=== PATIENT | female | born 1950 | race Caucasian/White ===

== ENCOUNTER 2016-09-04 14:02 | Emergency (ER) | payer MEDICARE, OTHER ==
[~2016-09-04] VITALS: Ht 162.6 cm; Wt 83.0 kg
[~2016-09-04 14:02] MED LIST: ALEN70TA48 PO; ALLO100T PO; ASCO500T9 PO; ASPI81TA43 PO; CALC-191 PO; ESCI10TA47 PO; HYDR-3989 PO; LOSA50TA52 PO; MECL-103 PO; OMEG500C7 PO; PRAV20TA4 PO
--- OUTSIDE RECORDS SUMMARY | 2016-09-04 14:05 | XMS REPORT | Referral Summary ---
Author Author [facility] Organization [facility] Address Unknown Phone Unavailable Care Team Providers Care Orthopedic Technician Name Role Phone Mak Karlos ABURTO Primary Care Physician [phone] Encounter Date(s): 03/10/16 - 03/10/16 [facility] [address] [place] [id number] Discharge Diagnosis: Contusion of right forearm Discharge Disposition: 01-Home or Self Care Attending Physician: Angel Harper DO Admitting Physician: Angel Harper DO Vital Signs Most recent to 1 oldest [Reference Range]: Temperature Tympanic 36.5 degC [36.6-38.1 degC] *LOW* (03/10/16 9:52 AM) Peripheral Pulse 85 bpm Rate [60-100 bpm] (03/10/16 9:52 AM) Blood Pressure 130/75 mmHg [90-140/60-90 mmHg] (03/10/16 9:52 AM) Problem List Condition Effective Dates Status Health Status Informant Obesity(Confirmed) Active patient Allergies, Adverse Reactions, Alerts Substance Reaction Severity Status HYDROcodone Active Medications alendronate weekly Oral, qWeek, 0 Refill(s) Start Date: 03/10/16 Status: Ordered allopurinol 100 mg oral tablet mg tabs, Oral, BID, 0 Refill(s) Start Date: 03/10/16 Status: Ordered aspirin 81 mg oral tablet 81 mg 1 tabs, Oral, Daily, # 30 tabs, 0 Refill(s) Start Date: 03/10/16 Status: Ordered escitalopram 10 mg oral tablet 10 mg 1 tabs, Oral, Daily, # 30 tabs, 0 Refill(s) Start Date: 03/10/16 Status: Ordered losartan 50 mg oral tablet 50 mg 1 tabs, Oral, Daily, # 30 tabs, 0 Refill(s) Start Date: 03/10/16 Status: Ordered Pravachol 20 mg oral tablet 20 mg 1 tabs, Oral, Daily, # 30 tabs, 0 Refill(s) Start Date: 03/10/16 Status: Ordered venlafaxine 150 mg oral capsule, extended release mg caps, Oral, Daily, 0 Refill(s) Start Date: 03/10/16 Status: Ordered Results No data available for this section Immunizations No data available for this section Procedures No data available for this section Social History Social History Type Response Smoking Status Never smoker Assessment and Plan Extracted from: Title: Office Visit Note Author: Angel Harper DO Date: 03/10/16 Assessment/Plan 1.Contusion of right forearm 1. This appears to be mild superficial contusion of the right forearm. 2. Conservative management recommended. 3. NSAID or Tylenol as needed for pain Ordered: Office Visit Level 3 Est 34178
--- OUTSIDE RECORDS SUMMARY | 2016-09-04 14:05 | XMS REPORT | Continuity of Care Document ---
Author Author [facility] Organization [facility] Address Unknown Phone Unavailable Support Name Relationship Address Phone BASHIR HATCH MD Caregiver [facility] [address] [place] [address] Unavailable HEATHER SORTO II, MD Caregiver [address] [place], [place] [phone] ROMEROGAYLE Next Of Kin [address] [place] [address] Insurance Providers Payer Name Policy Number Subscriber Name Relationship Medicare [id number] Nahomy Reeves 18 Self [employer] Medicare Supplement [id number] Nahomy Reeves 18 Self Advance Directives Directive Response Recorded Date/Time Ordered Resuscitation Status Full Code 03/02/14 5:22am Resuscitation Documents on File No 03/02/14 8:37am Chief Complaint and Reason for Visit Chief Complaint CONFUSION,DIZZINESS Reason for Visit Medication side effect Dizziness Concussion Confusion Problems Medical Problems Problem Onset Date Status Medication side effect Unknown Active Dizziness Unknown Active Concussion Unknown Active Confusion Unknown Active Medications Medication Dose Route Sig Days/Qty Instructions Order Date Discontinued Date Status [[id number] M1] 100 Mg PO DAILY 03/02/14 Active [Pravastatin Sod20 M1] 20 Mg PO DAILY 03/02/14 Active [Losartan Hmlmio84 M1] 50 Mg PO DAILY 03/02/14 Active [Escitalopram Ox10 M1] 10 Mg PO DAILY 03/02/14 Active [Alendronate Sod70 M1] 70 Mg PO WEEKLY 03/02/14 Active Aspirin 81 Mg PO DAILY 03/02/14 Active Calcium Carbonate/Vitamin D3 1 Tab PO TWICE A DAY 03/02/14 Active [place]-3 Fatty Acids 1,000 Mg PO DAILY 03/02/14 Active Ascorbic Acid 1,000 Mg PO DAILY 03/02/14 Active Meclizine HCl 25 Mg PO THREE TIMES A DAY 60 Qty Take 1 tablet, by mouth, 2 times a day. 03/03/14 Active Social History Social History Problem Response Recorded Date/Time Smoking Status Never smoker 03/02/2014 8:41am Hx Substance Use No 03/02/2014 4:25am Hx Alcohol Use No 03/02/2014 4:25am Hospital Discharge Instructions Instructions: Care Instructions: Reason for Hospitalization: CONFUSION, DIZZINESS I was in the hospital because (patient own words): "BECAUSE I HAD A BAD FALL, AND I COULDN'T STAND UP WITHOUT BEING NERVOUS" Discharge Diet: regular Discharge Activity: as tolerated, minimal weight bearing on right foot Follow Up Appointments: FOLLOW-UP WITH DR MIN ON 03-17-14 AT 1:00PM. CHECK IN TIME AT 12:45PM. BRING CURRENT MED LIST AND COPY OF INSURANCE CARDS FOLLOW-UP WITH DR SORTO ON 03-10-14 AT 10:15AM AT [facility]. Patient Instructions: EEG AWAKE & DROWSY OUT PATIENT ON 03/04 Condition at time of discharge: Good Notify Physician If: Worsening SOB, swelling in ankles, wt gain > 3 lbs General Information: n/a Condition at time of discharge: Good Good Plan of Care Discharge Date 03/03/14 2:01pm Disposition 01 DISCHARGED HOME, SELF-CARE Instructions/Education Provided DI for Altered Mental Status Prescriptions See Medications Section Functional Status Query Response Date Recorded Physical Hygiene Self March 03, 2014 1:03pm Disabilities None March 03, 2014 1:03pm Devices Used Cane March 03, 2014 1:03pm Dressing Self March 03, 2014 1:03pm Ambulation Self March 03, 2014 1:03pm Diet Self March 03, 2014 1:03pm Cognitive/Functional Comments CURRENTLY USING CANE BECAUSE OF FOOT FX, NORMALLY WITHOUT ASSISTIVE DEVICE March 03, 2014 1:03pm Mental Status Alert March 03, 2014 1:03pm Disabilities None March 03, 2014 1:03pm Devices Used Cane March 03, 2014 1:03pm Physical Hygiene Self March 03, 2014 1:03pm Dressing Self March 03, 2014 1:03pm Ambulation Self March 03, 2014 1:03pm Diet Self March 03, 2014 1:03pm Allergies, Adverse Reactions, Alerts Allergen Type Severity Reaction Status Last Updated No Known Allergies Active 03/02/14 Immunizations Name Given Type Hx Influenza Vaccination Y FALL 2012 Historical Hx Pneumococcal Vaccination No Historical Hx Influenza Vaccination Y FALL 2012 Historical Vital Signs Acute Vital Signs Vital Response Date/Time Temperature (Fahrenheit) 96.8 deg F (96.8 - 99.1) Temperature (Calculated Celsius) 36.97769 degrees C (36.0 - 37.3) Temperature Source Oral Pulse Rate (adult) 72 bpm (60 - 100) Respiratory Rate 20 breaths/min (10 - 20) O2 Sat by Pulse Oximetry 96 % (90 - 100) Oxygen Delivery Method Room Air Blood Pressure 115/60 mm Hg Blood Pressure Source Automatic Cuff Blood Pressure / Blood Pressure Source Automatic Cuff Height 5 ft 4 in Weight 184 lb Body Mass Index 31.0 kg/m^2 Results Test Source Date Result Interp. Ref. Range Comments Acetaminophen Level March 02, 2014 4:32am < 10 UG/ML L 10-30 TOXIC < 4 HR POST INGESTION: >150 MG/L;TOXIC <12 HR POST INGESTION: >50 MG/L Alanine Aminotransferase (ALT/SGPT) March 02, 2014 4:32am 39 U/L N 9- 52 Albumin March 02, 2014 4:32am 3.9 G/DL N 3.5-5.0 Albumin/Globulin Ratio March 02, 2014 4:32am 1.3 RATIO N 1.1-2.2 Alkaline Phosphatase March 02, 2014 4:32am 68 U/L N 38-126 Anion Gap March 02, 2014 4:32am 10 MEQ/L N 5-15 Aspartate Amino Transf (AST/SGOT) March 02, 2014 4:32am 30 U/L N 14- 36 BUN/Creatinine Ratio March 02, 2014 4:32am 16 RATIO N 6-26 Basophils # (Auto) March 02, 2014 4:32am 0.1 T/MM3 N 0-0.2 Basophils (%) (Auto) March 02, 2014 4:32am 0.6 % N 0-2 Blood Urea Nitrogen March 02, 2014 4:32am 21.0 MG/DL H 7-17 Calcium Level March 02, 2014 4:32am 9.8 MG/DL N 8.4-10.2 Calculated Osmolality March 02, 2014 4:32am 274 MOSM/KG N 261-280 Carbon Dioxide Level March 02, 2014 4:32am 27 MEQ/L N 22-30 Chloride Level March 02, 2014 4:32am 104 MEQ/L N 98-107 Cholesterol Level February 27, 2014 10:29am 130 MG/DL L 132-199 Cholesterol/HDL Ratio February 27, 2014 10:29am 4.5 RATIO H 0-4.0 Conjugated Bilirubin March 02, 2014 4:32am 0.00 MG/DL N 0.00-0.30 Creatinine March 02, 2014 4:32am 1.3 MG/DL DH 0.7-1.2 Eosinophils # (Auto) March 02, 2014 4:32am 0.1 T/MM3 N 0-0.5 Eosinophils (%) (Auto) March 02, 2014 4:32am 1.7 % N 0-4 Globulin March 02, 2014 4:32am 2.9 G/DL N 2.4-3.6 Glucose Level March 02, 2014 4:32am 104 MG/DL N 65-110 Hematocrit March 02, 2014 4:32am 42.6 % N 36-46 Hemoglobin March 02, 2014 4:32am 13.6 GM/DL N 12-16 LDL Cholesterol, Calculated February 27, 2014 10:29am 69.6 N 66-159 Lymphocytes # (Auto) March 02, 2014 4:32am 2.0 T/MM3 N 1-4.8 Lymphocytes (%) (Auto) March 02, 2014 4:32am 24.5 % N 23-45 Mean Corpuscular Hemoglobin March 02, 2014 4:32am 30.1 UUG N 26-34 Mean Corpuscular Hemoglobin Concent March 02, 2014 4:32am 31.9 GM/DL N 31-37 Mean Corpuscular Volume March 02, 2014 4:32am 94.2 UM3 N 80-100 Mean Platelet Volume March 02, 2014 4:32am 9.9 UM3 N 9.4-12.4 Monocytes # (Auto) March 02, 2014 4:32am 0.5 T/MM3 N 0-0.8 Monocytes (%) (Auto) March 02, 2014 4:32am 5.8 % N 0-9.0 Neutrophils # (Auto) March 02, 2014 4:32am 5.6 T/MM3 N 1.8-7.7 Neutrophils (%) (Auto) March 02, 2014 4:32am 67.3 % H 33-66 Platelet Count March 02, 2014 4:32am 285 T/MM3 N 130-400 Potassium Level March 02, 2014 4:32am 4.4 MEQ/L N 3.6-5 RDW Standard Deviation March 02, 2014 4:32am 44.0 FL N 36.9-50.2 Red Blood Count March 02, 2014 4:32am 4.52 M/MM3 N 4.00-5.20 Sodium Level March 02, 2014 4:32am 141 MEQ/L N 134-144 Thyroid Stimulating Hormone (TSH) February 27, 2014 10:29am 1.85 MIU/L N 0.47-4.68 Total Bilirubin March 02, 2014 4:32am 0.50 MG/DL N 0.20-1.30 Total Protein March 02, 2014 4:32am 6.8 G/DL N 6.3-8.2 Triglycerides Level February 27, 2014 10:29am 157 MG/DL H 35-135 Unconjugated Bilirubin March 02, 2014 4:32am 0.20 MG/DL N 0.00-1.10 Uric Acid February 27, 2014 10:29am 5.2 MG/DL N 2.5-7.5 Urine Bacteria March 02, 2014 4:55pm Trace H - Has specimen been collected/obtained? Y Urine Bilirubin March 02, 2014 4:55pm Negative - Has specimen been collected/obtained? Y Urine Blood March 02, 2014 4:55pm Negative - Has specimen been collected/obtained? Y Urine Collection Type March 02, 2014 4:55pm Cleancatch-midstream - Has specimen been collected/obtained? Y Urine Color March 02, 2014 4:55pm Yellow - Has specimen been collected/obtained? Y Urine Glucose (UA) March 02, 2014 4:55pm Negative - Has specimen been collected/obtained? Y Urine Ketones March 02, 2014 4:55pm Negative - Has specimen been collected/obtained? Y Urine Leukocyte Esterase March 02, 2014 4:55pm 1+ H - Has specimen been collected/obtained? Y Urine Nitrite March 02, 2014 4:55pm Negative - Has specimen been collected/obtained? Y Urine Protein March 02, 2014 4:55pm Negative - Has specimen been collected/obtained? Y Urine RBC March 02, 2014 4:55pm Trace /HPF - Has specimen been collected/obtained? Y Urine Renal Epithelial Cells February 27, 2014 10:29am 3-5 /HPF - Urine Specific [place] March 02, 2014 4:55pm 1.010 L - Has specimen been collected/obtained? Y Urine Squamous Epithelial Cells March 02, 2014 4:55pm 0-5 - Has specimen been collected/obtained? Y Urine Turbidity March 02, 2014 4:55pm Clear - Has specimen been collected/obtained? Y Urine Urobilinogen March 02, 2014 4:55pm 0.2 EU/DL - Has specimen been collected/obtained? Y Urine WBC March 02, 2014 4:55pm 1-3 /HPF - Has specimen been collected/obtained? Y Urine White Blood Cell Casts February 27, 2014 10:29am 0-1 /LPF - Urine pH March 02, 2014 4:55pm 6.0 - Has specimen been collected/ obtained? Y VLDL Cholesterol February 27, 2014 10:29am 31.4 MG/DL H 0-28 White Blood Count March 02, 2014 4:32am 8.3 T/MM3 N 4.5-11.0 Chemistry Specimen Hemolysis March 02, 2014 4:32am < 15 0-25 0-25: No Hemolysis.26-70: Slight Hemolysis - can falsely elevate K and Urine Protein. 71-285: Moderate Hemolysis - can falsely elevate K, Troponin I, CA 19-9, PTH, CSF GLucose, and Urine Protein, and can falsely decrease Phenytoin. 286-999: Gross Hemolysis - can falsely elevate K, Troponin I, CA 19-9, PTH, CSF Glucose, and Urine Protine, and can falsely decrease Phenytoin. Recommend specimen recollection. Lab Scanned Report March 02, 2014 9:40pm REFERENCE LAB [id number] - HDL Cholesterol Direct February 27, 2014 10:29am 29 MG/DL L 40-60 Turbidity March 02, 2014 4:32am < 20 0-20 Glomerular Filtration Rate Calc March 02, 2014 4:32am 41 - Immature Granulocyte # (Auto) March 02, 2014 4:32am 0.01 T/MM3 N 0.00- 0.03 Immature Granulocyte % (Auto) March 02, 2014 4:32am 0.1 % N 0.0-0.5 Icterus Index March 02, 2014 4:32am < 2 0-7 Name: NAHOMY REEVES Unit #: [id number] : [id number] Sex: F Loc / Svc: ED DOS: 03/02/14 Signed Report #: [id number] DIAGNOSTIC IMAGING REPORT TYPE OF EXAM: CT HEAD W/O CONTRAST Dictated By: CHEN BARON MD INDICATION: ITS.REASON: acute worsening confusion and dizziness after head injury CT HEAD W/O CONTRAST: Comparison: February 27, 2014 Technique: Axial CT images through the head were performed without contrast. FINDINGS: The ventricles are of stable. There is no evidence of acute intracranial hemorrhage, midline displacement, or mass effect. There are numerous areas of low attenuation in the white matter which most likely represent changes of chronic microvascular ischemia. The CT attenuation of the brain parenchyma is otherwise normal within the cerebellum, brain stem, and cerebral hemispheres. The tympanic cavities and mastoid air cells are free of appreciable disease. There are no definite fractures of the skull base, calvarium, or visualized portion of the midface. Right parietal scalp hematoma again seen. IMPRESSION: No CT evidence of acute traumatic intracranial injury. There is a preliminary report by virtual radiologic. . Procedures No known history of procedures. Encounters Encounter Location Date/Time Discharged Inpatient [facility] 03/02/14 5:22am Registered Clinic [facility] 02/27/14 10:09am Recent Diagnosis Medication side effect Dizziness Concussion Confusion
--- OUTSIDE RECORDS SUMMARY | 2016-09-04 14:05 | XMS REPORT | Continuity of Care Document ---
Author Author [facility] Organization [facility] Address Unknown Phone Unavailable Support Name Relationship Address Phone HEATHER SORTO II, MD Caregiver [address] [place] [address] Unavailable CIARAN DICKERSON MD Caregiver [address] [place] [phone] Unavailable GAYLE JASSO Next Of Kin [address] [place] [address] Insurance Providers Guarantor Nahomy Reeves Address [address] [place] [address] C Email DENIED/NO TO PT [facility] Medicare Supplement Policy Number [id number] Subscriber's Name Nahomy Reeves Relationship 18 Self Group Number PLAN Payer Medicare Policy Number [id number] Subscriber's Name Nahomy Reeves Relationship 18 Self Advance Directives Directive Response Recorded Date/Time Advanced Directives Type None 02/13/16 5:40am Chief Complaint and Reason for Visit Chief Complaint Lower Extremity Injury Reason for Visit Sprain of right knee Problems Active Problems Medical Problem Onset Date Status Concussion Unknown Acute Confusion Unknown Acute Dizziness Unknown Acute Medication side effect Unknown Acute Past Problems Medical Problem Onset Date Sprain of right knee Unknown Medications Current Home Medications Medication Dose Units Route Directions Days Qty Instructions Start Date Alendronate Sod70 M1 (Alendronate Sodium) 70 Mg Tablet 70 Mg Oral Weekly 03/02/14 Mbytzyrhypa605 M1 (Allopurinol) 100 Mg Tablet 100 Mg Oral Daily 03/02/14 Ascorbic Acid (Vitamin C) 500 Mg Tablet 1,000 Mg Oral Daily 03/02 Aspirin (Aspir-Low) 81 Mg Tablet. 81 Mg Oral Daily 03/02/14 Calcium Carbonate/Vitamin D3 (Calcium + Vitamin D Tablet) 1 Each Tablet 1 Tab Oral Twice A Day 03/02/14 Escitalopram Ox10 M1 (Escitalopram Oxalate) 10 Mg Tablet 10 Mg Oral Daily 03/02/14 Hydrocodone/Acetaminophen (Hydrocodon-Acetaminophen 5-325) 5-325 Tablet 1-2 Tab Oral Every 6 Hours as needed for Pain 20 Tablet 02/13/16 Losartan Ilikum39 M1 (Losartan Potassium) 50 Mg Tablet 50 Mg Oral Daily 03/02/14 Meclizine Hcl 25 Mg Tablet 25 Mg Oral Three Times A Day 60 Tablet Take 1 tablet, by mouth, 2 times a day. 03/03/14 [place]-3 Fatty Acids (Fish Oil) 500 Mg Capsule 1,000 Mg Oral Daily 03/02/14 Pravastatin Sod20 M1 (Pravastatin Sodium) 20 Mg Tablet 20 Mg Oral Daily 03/02/14 Social History Social History Problem Response Recorded Date/Time Onset Date Status Chewing Tobacco Status No 02/13/2016 6:13am Not Applicable Not Applicable Hx Substance Use No 02/13/2016 6:13am Not Applicable Not Applicable Hx Alcohol Use No 02/13/2016 6:13am Not Applicable Not Applicable Tobacco Usage none 03/02/2014 4:29am Not Applicable Not Applicable Query Response Start Date Stop Date Smoking Status Never smoker Hospital Discharge Instructions No hospital discharge instructions. Plan of Care Discharge Date 02/13/16 6:15am Disposition 01 DISCHARGED HOME, SELF-CARE Condition at Discharge Stable Instructions/Education Provided Knee Sprain Prescriptions See Medication Section Referrals HEATHER SORTO II, MD Address: [address] [place] [address] [id number] Note: Follow-up for final read of x-rays and reevaluation Additional Instructions/Education Wear immobilizer and use crutches nonweightbearing Care Plan and Goals Physician Care Plan Problem: Right knee sprain Goal: Follow up with primary care provider Instructions: Take medications and follow care plan as discussed/written Functional Status No functional status results. Allergies, Adverse Reactions, Alerts No known allergies. Immunizations Query Response on File Recorded Date/Time Hx Influenza Vaccination Y fall 201203/02/14 8:41am Hx Pneumococcal Vaccination No 03/02/14 8:41am Hx Influenza Vaccination Y fall 201203/02/14 8:41am Influenza Vaccine Hx fall 201402/13/16 6:13am Vital Signs Acute Vital Signs Vital Response Date/Time Temperature (Fahrenheit) 97.2 deg F (96.8 - 99.1) 02/13/2016 6:38am Temperature (Calculated Celsius) 36.57527 degrees C (36.0 - 37.3) 02/13/2016 6:38am Pulse Rate (adult) 78 bpm (60 - 100) 02/13/2016 6:38am Respiratory Rate 16 breaths/min (10 - 20) 02/13/2016 6:38am O2 Sat by Pulse Oximetry 97 % (90 - 100) 02/13/2016 6:38am Blood Pressure 128/68 mm Hg 02/13/2016 6:38am Height (Feet) 5 feet 02/13/2016 5:40am Height (Inches) 4.00 inches 02/13/2016 5:40am Weight (Kilograms) 80.600 kg 02/13/2016 5:40am Body Mass Index (BMI) 30.0 02/13/2016 5:40am Results No known relevant diagnostic tests, laboratory data and/or discharge summary. Procedures No known history of procedures. Encounters Encounter Location Arrival/Admit Date Discharge/Depart Date Attending Provider Departed Emergency Room [facility] 02/13/16 5:36am 02/13/16 6: 15am CIARAN DICKRESON MD Recent Diagnosis
--- OUTSIDE RECORDS SUMMARY | 2016-09-04 14:06 | XMS REPORT | Referral Summary ---
Author Author [facility] Organization [facility] Address Unknown Phone Unavailable Care Team Providers Care Retail Loan Officer Name Role Phone Mak Karlos ABURTO Primary Care Physician [phone] Encounter VC Date(s): 04/12/16 - 04/12/16 [facility] [address] [place] [id number] Discharge Diagnosis: Thrombus Discharge Disposition: 01-Home or Self Care Attending Physician: Angel Harper DO Admitting Physician: Angel Harper DO Vital Signs Most recent to 1 oldest [Reference Range]: Temperature Tympanic 36.6 degC [36.6-38.1 degC] (04/12/16 1:48 PM) Peripheral Pulse 78 bpm Rate [60-100 bpm] (04/12/16 1:48 PM) Respiratory Rate 18 br/min [14-20 br/min] (04/12/16 1:48 PM) Blood Pressure 118/78 mmHg [90-140/60-90 mmHg] (04/12/16 1:48 PM) SpO2 98 % (04/12/16 1:48 PM) Problem List Condition Effective Dates Status Health [...] Visit Note Author: Angel Harper DO Date: 04/12/16 Assessment/Plan 1.Thrombus 1. He has superficial, organized chronic thrombus. 2. Continue conservative management. 3. Follow-up for any new concerns. Ordered: Office Visit Level 3 Est 69274
[2016-09-04 14:07] VITALS: Ht 162.6 cm; Wt 83.0 kg
--- NOTE | 2016-09-04 14:16 | ERPDOC ---
Departure Disposition Decision Date: Sep 04, 2016 Disposition Decision Time: 17:44 (KRYSTA LOCO APRN) Disposition: 01 DISCHARGED HOME, SELF-CARE Impression Impression (KRYSTA LOCO APRN) Impression: Primary Impression: Orthostatic dizziness Additional Impressions: Hypoxia Volume depletion Severity: Moderate (KRYSTA LOCO APRN) Condition: Improved Seen By: Mid-level only (KRYSTA LOCO APRN) Referrals: HEATHER SORTO II, MD (Family) Patient Instructions: Hypotension (ED) Problems/Meds/Labs Reviewed?: Yes Medications reviewed and manag: Yes (KRYSTA LOCO APRN) Additional Instructions: Your CBC was normal. CT of you chest did not indicate a blood clot or pneumonia. Your dizziness is from having a low blood pressure, worsen when going from lying to sitting. Hold your prescribed losartan. Follow with Dr. Sorto in the next 1-2 days. Follow treatment plan. Stay hydrated, drink 8-12 glasses of water daily. Avoid caffeine or drinks with artificial sugar which may be dehydrated. Avoid caffeinated and sugar-free products. Follow up care ordered?: Yes Mental Status: Alert, Oriented (KRYSTA LOCO APRN) HPI - General Medical General Stated Complaint: SUDDEN ONSET OF DIZZINESS Time Seen by Provider: 14:15 Source: patient (KRYSTA LOCO APRN) Time Seen by Provider: 14:08 (CIARAN DICKERSON MD) HPI - General Medical Initial Comments 66 YO F brought to ED by EMS from patient's work. EMS reports that patient's initial SpO2 was in the 60's. Patient says that she went to the BR after eating lunch and when she came out she began to feel dizzy (like the room was spinning ) and like she might pass out. Patient says she sat down and leaned her head on the desk. A coworker called EMS. Patient denies fever, chills, cough, CP, SOA, headache, ataxia. Nurse reports patient says dizziness was accompanied by nausea and diaphoresis. Patient says she had exactly the same thing happen one week ago after lunch. She says she drove herself home and went to bed. Says she felt fine the next day and went back to work Had no additional problem until today. Patient denies any pain, falling or LOC. Patient denies any dietary changes. Associated Symptoms: DENIES: chest pain, cough, diaphoresis, fever/chills, headaches, loss of appetite, malaise, nausea/vomiting, rash, seizure, shortness of breath, syncope, weakness (KRYSTA LOCO CLARIFICATION OPERATOR) Allergies: Coded Allergies: No Known Allergies (Unverified , 09/04/16) Past History Past Medical History Metabolic: gout, hypercholesterolemia, hypertension Cardiac: DENIES: A-fib, CAD, CHF, IN, angina Respiratory: DENIES: COPD, asthma GI: DENIES: ulcers Female: DENIES: renal failure, renal insufficiency Musculoskeletal: DENIES: rheumatoid arthritis Psychological: anxiety, depression (KRYSTA LOCO CLARIFICATION OPERATOR) Surgical History Denies Surgeries (KRYSTA LOCO APRN) Family History Family PMH: FOUND: other (noncontributory) (KRYSTA LOCO APRN) Vaccines Hx Influenza Vaccination: Yes (FALL 2012) Hx Pneumococcal Vaccination: No (KRYSTA LOCO APRN) Social History Substance Use Type: does not use Alcohol Intake: none Last Drink: prior to arrival (KRYSTA LOCO APRN) Review of Systems Constitutional Constitutional: dizziness, DENIES: chills, fever, weakness (KARIN LOCOS Juancarlos CLARIFICATION OPERATOR) Eyes General: DENIES: erythema, exudate Lids/Accessories: DENIES: erythema, swelling Vision: DENIES: blurring (KARIN LOCOS Juancarlos CLARIFICATION OPERATOR) ENMT Ears: DENIES: pain Hearing: DENIES: hearing loss Sinuses: DENIES: congestion, rhinorrhea Mouth/Throat: DENIES: sore throat (KARIN LOCOS A CLARIFICATION OPERATOR) Cardiovascular Cardiac: DENIES: chest pain, murmur Rhythm/Rate: DENIES: palpitations (KARIN LOCOS Juancarlos CLARIFICATION OPERATOR) Pulmonary Respiratory: DENIES: cough, dyspnea (KARIN LOCOS A CLARIFICATION OPERATOR) GI Upper Abdomen: DENIES: nausea, pain, vomiting Lower Abdomen: DENIES: diarrhea, pain (KARIN LOCOS A CLARIFICATION OPERATOR) General: DENIES: dysuria, pain (KARIN LOCOS A CLARIFICATION OPERATOR) Musculoskeletal General: DENIES: joint pain, pain, tenderness (KARIN LOCOS A CLARIFICATION OPERATOR) Integumentary Skin: DENIES: color change, itching, rash (KARIN LOCOS A CLARIFICATION OPERATOR) Neurological General: DENIES: ataxia, change in strength, numbness, paralysis/paresis, weakness (KRYSTA LOCO CLARIFICATION OPERATOR) Psychiatric Psychiatric: DENIES: anxiety, depression, nervousness (KRYSTA LOCO APRN) Physical Exam General General Nourishment: well nourished, well developed, no acute distress, adult General Body Habitus: well groomed (KRYSTA LOCO APRN) Vitals and Pain First Documented Vital Signs Date Time Temp Pulse Resp B/P Pulse Ox O2 Delivery O2 Flow Rate FiO2 09/04/16 14:07 96.8 84 18 95/47 92 Room Air (CIARAN DICKERSON MD) Vitals and Pain Weight: Kilograms: Height (feet): 5 Height (inches): 4.00 Triage Pain Scale: (KRYSTA LOCO APRN) Eyes (brief) Eyes Brief: found: EOMI, PERRL (KRYSTA LOCO APRN) ENMT Ear/Canal/Mastiod: NOT FOUND: blood, discharge Tympanic Membrane : Location: Bilateral Tympanic Membrane: FOUND Normal, NOT FOUND Bulging, NOT FOUND Erythema, NOT FOUND Fluid, NOT FOUND Retracted Nose: NOT FOUND: deformity Mouth/Dental/Tongue: FOUND: mucosa moist, NOT FOUND: loose teeth, tender teeth Pharynx: FOUND: posterior drainage, NOT FOUND: displacement, uvular deviation Head: symmetric Forehead: symmetric (KARIN LOCOS A CLARIFICATION OPERATOR) Neck (brief) Neck: FOUND: trachea midline, NOT FOUND: adenopathy, tenderness, thyromegaly ( KARIN LOCOS A CLARIFICATION OPERATOR) Respiratory (brief) Respiratory: FOUND: clear all vega, equal bilaterally, symmetrical (KARIN LOCOS A CLARIFICATION OPERATOR) Cardiovascular (brief) Cardiac: FOUND: regular rate, regular rhythm Pulses: all distal extremities, equal, strong (KARIN LOCOS A CLARIFICATION OPERATOR) Abdomen (brief) Abdominal Brief: FOUND: bowel normo active x4, soft, NOT FOUND: tender (KARIN LOCOS A CLARIFICATION OPERATOR) Musculoskeletal (brief) Musculoskeletal Brief: NOT FOUND: deformity, loss of motion (KARIN LOCOS A CLARIFICATION OPERATOR) Integumentary (brief) Integumentary Brief: FOUND: dry, pink, warm (KARIN LOCOS A CLARIFICATION OPERATOR) Neurologic (brief) Neurological Brief: FOUND: CN w/o gross def to obs, motor-no gross deficits, sensory-no gross deficits (LOCO,KRYSTA A CLARIFICATION OPERATOR) Psychiatric (brief) Psychiatric Brief: FOUND: alert, normal affect, oriented (KRYSTA LOCO APRN ) Differential Diagnoses Considering: Acute IN/Ischemia, Cardiac Dysrhythmia, Long QT Syndrome, Medication Effect, Orthostatic Hypotension, Pulmonary Edema, Pulmonary Embolus, TIA, Vasovagal Reaction (KRYSTA LOCO APRN) Progress Results/Orders Orders Procedure Category Date Status Time EKG EKG 09/04/16 Taken 14:12 Cmp - Comprehensive LAB 09/04/16 Complete Metabolic 14:16 Probnp LAB 09/04/16 Complete 14:16 Cbc W/Auto LAB 09/04/16 Complete Diff-Reflex Manual 14:16 D-Dimer LAB 09/04/16 Complete 14:16 Troponin I W LAB 09/04/16 Complete Hemolysis Index 14:16 Chest, Pa & Lateral RAD 09/04/16 Resulted 14:16 Iv Lock (Ed Only) EDM 09/04/16 Transmitted 14:16 Orthostatic Bp/Pulse EDM 09/04/16 Transmitted 14:16 Nothing By Mouth (Ed EDM 09/04/16 Transmitted Only) 14:16 Bgm (Ed) EDM 09/04/16 Transmitted 14:16 Ondansetron Inj PHA 09/04/16 Complete (Zofran) 14:30 Normal Saline (Normal PHA 09/04/16 Complete Saline Iv) 15:[address] 09/04/16 Resulted Iohexol (Omnipaque) PHA 09/04/16 Complete 15:34 Normal Saline (Ns) PHA 09/04/16 Complete 15:34 Saline Flush (Iv PHA 09/04/16 Complete Flush) 15:35 UA, LAB 09/04/16 Complete Dip&Micro(Complete) & 16:31 (CIARAN DICKERSON MD) Lab Results Laboratory Tests Test 09/04/16 14:27 09/04/16 14:45 09/04/16 16:31 White Blood Count 7.1T/MM3 Red Blood Count 4.42M/MM3 Hemoglobin 13.0GM/DL Hematocrit 40.6% Mean Corpuscular Volume 91.9UM3 Mean Corpuscular Hemoglobin 29.4UUG Mean Corpuscular Hemoglobin Concent 32.0GM/DL RDW Standard Deviation 45.2FL Platelet Count 300T/MM3 Mean Platelet Volume 9.2UM3 Immature Granulocyte % (Auto) 0.0% Neutrophils (%) (Auto) 52.7% Lymphocytes (%) (Auto) 41.7% Monocytes (%) (Auto) 5.6% Eosinophils (%) (Auto) 0.0% Basophils (%) (Auto) 0.0% Absolute Immature Granulocyte (auto 0.00T/MM3 Absolute Neutrophils (auto) 3.7T/MM3 Absolute Lymphocytes (auto) 3.0T/MM3 Absolute Monocytes (auto) 0.4T/MM3 Absolute Eosinophils (auto) 0.0T/MM3 Absolute Basophils (auto) 0.0T/MM3 D-Dimer 283NG/ML Turbidity < 20 Sodium Level 143MEQ/L Potassium Level 4.2MEQ/L Chloride Level 105MEQ/L Carbon Dioxide Level 23MEQ/L Anion Gap 15MEQ/L Blood Urea Nitrogen 25.0MG/DL Creatinine 1.6MG/DL Glomerular Filtration Rate Calc 32 BUN/Creatinine Ratio 16RATIO Glucose Level 105MG/DL Calculated Osmolality 279MOSM/KG Calcium Level 9.2MG/DL Total Bilirubin 0.40MG/DL Icterus Index < 2 Aspartate Amino Transf (AST/SGOT) 30U/L Alanine Aminotransferase (ALT/SGPT) 44U/L Alkaline Phosphatase 55U/L Troponin I < 0.012ng/ml BW-Pvh-D-Type Natriuretic Peptide 72PG/ML Total Protein 6.8G/DL Albumin 3.9G/DL Globulin 2.9G/DL Albumin/Globulin Ratio 1.3RATIO Chemistry Specimen Hemolysis < 15 Glucometer 116mg/dL Urine Collection Type Cleancatch-midstream Urine Color Yellow Urine Turbidity Clear Urine pH 5.5 Urine Specific [place] 1.010 Urine Protein Negative Urine Glucose (UA) Negative Urine Ketones Negative Urine Blood Negative Urine Nitrite Negative Urine Bilirubin Negative Urine Urobilinogen 0.2EU/DL Urine Leukocyte Esterase 1+ Urine RBC None seen/HPF Urine WBC 3-5/HPF Urine Squamous Epithelial Cells 0-5 Urine Bacteria 1+ Urine Hyaline Casts 0-1/LPF Urine Culture Indicated Cult not indicated (CIARAN DICKERSON MD) Medications Current ED Medications Ondansetron HCl 4 mg 4 mg O ONCE IV Last administered on 09/04/16t 14:28; Start 09/04/16 at 14:30; Stop 09/04/16 at 14:31; Status DC Sodium Chloride (Normal Saline IV) 1,000 ml @ 0 mls/hr Q0M ONCE IV Last administered on 09/04/16t 15:20; Start 09/04/16 at 15:00; Stop 09/04/16 at 15:01 ; Status DC Iohexol 1 bottle 1 bottle STK-MED ONCE .ROUTE ; Start 09/04/16 at 15:34; Stop at 15:35; Status DC Sodium Chloride (NS) 100 ml @ As Directed STK-MED ONCE .ROUTE ; Start 09/04/16 at 15:34; Stop 09/04/16 at 15:35; Status DC Sodium Chloride (Iv Flush) 10 ml STK-MED ONCE .ROUTE ; Start 09/04/16 at 15:35; Stop 09/04/16 at 15:36; Status DC (CIARAN DICKERSON MD) Progress Progress Patient is orthostatic with low lying pressure of 87/52 which drop to 73/52 with sitting. CBC-normal BUN-25 Creatinine 1.6 Trop <0.012 ProBNP 72 D-dimer 283 Patient's has not been hypoxia since arriving to the ED. One of patient's daily medication is closing. Patient does not know why she is taking Macrobid laymen when asked she tells me to ask Dr. Sorto I discussed elevated D-dimer with patient and risk/benefits of CTA for PE due hypoxia on initial arrival of EMS. Patient agrees to CTA for PE. VS are improving with fluids and patient is stable on her feet without report of dizziness (no ataxia). I discussed labs, EKG, CT for PE and conversation I had with Dr. Sorto (see below). I discussed that dizzy is related to orthostatic hypotension which improved with fluids. Patient denies drinking any ETOH yesterday but does say the only thing she usually drinks has caffeine in it. Patient verbalized understanding of treatment plan, follow up with Dr. Sorto and return precautions. (KRYSTA LOCO APRN) EKG EKG : Rate: 60-100 Rhythm: sinus Bock: normal QRS: normal Intervals: normal ST/T: non-specific changes Interpreted by: signing physician (Dr. Dickerson) (KRYSTA LOCO APRN) EKG : Rate: 60-100 Rhythm: sinus Bock: normal QRS: normal Intervals: normal ST/T: non-specific changes Interpreted by: signing physician (CIARAN DICKERSON MD) Consult/PCP Consult/PCP : Physician Contacted: Dr. Sorto Time Called: 17:34 Type of discussion: Phone Consult/PCP Discussion Details I discussed patient's HPI, PMH, labs, CXR, Chest CT, EKG, VS, exam findings and treatment in the ED with Dr. Sorto patient's PCP. Dr. Sorto would like patient to hold losartan and follow with him in next 1-2 days. (KRYSTA LOCO APRN) Xray Xray : Xray: CXR PA/Lat (mild cardiomegaly, no acute pneumonia or other cardiopulmonary findings) Interpretation: Reviewed Written Report (KRYSTA LOCO APRN) CT CT : CT: PE IV contrast (No PE or other acute findings) (KRYSTA LOCO APRN) KRYSTA LOCO APRN Sep 04, 2016 14:15 CIARAN DICKERSON MD Sep 05, 2016 15:07
[2016-09-04] MEDS ORDERED: ONDANSETRON 4mg/2ml INJECTION IV ONE (14:30)
--- OUTSIDE RECORDS SUMMARY | 2016-09-04 14:32 | XMS REPORT | Continuity of Care Document ---
Author Author [facility] Organization [facility] Address Unknown Phone Unavailable Support Name Relationship Address Phone BASHIR HATCH MD Caregiver [facility] [address] [place] [address] Unavailable HEATHER SORTO II, MD Caregiver [address] [place], [place] [phone] ROMEROGAYLE Next Of Kin [address] [place] [address] Insurance Providers Payer Name Policy Number Subscriber Name Relationship Medicare [id number] Nahomy Reeves 16 Self [employer] Medicare Supplement [id number] Nahomy Reeves 16 Self Advance Directives Directive [...] Days/Qty Instructions Order Date Discontinued Date Status [Chmfmiqvahe164 M1] 100 Mg PO DAILY 03/02/14 Active [Pravastatin Sod20 M1] 20 Mg PO DAILY 03/02/14 Active [Losartan Vipaxb84 M1] 50 Mg PO DAILY 03/02/14 Active [Escitalopram Ox10 M1] 10 Mg PO DAILY 03/02/14 Active [Alendronate Sod70 M1] 70 Mg PO WEEKLY 03/02/14 Active Aspirin 81 Mg PO DAILY 03/02/14 Active Calcium Carbonate/Vitamin D3 1 Tab PO TWICE A DAY 03/02/14 Active Cordell-3 Fatty Acids 1,000 Mg PO DAILY 03/02/14 [...] DR SORTO ON 03-10-14 AT 10:15AM AT [facility]. Patient Instructions: EEG AWAKE & DROWSY [...] F (96.8 - 99.1) Temperature (Calculated Celsius) 36.15180 degrees C (36.0 - 37.3) Temperature Source [...] 2014 10:29am 3-5 /HPF - Urine Specific [place] March 02, 2014 4:55pm 1.010 L - [...] Report March 02, 2014 9:40pm [facility] [id number] - HDL Cholesterol Direct February 27, 2014 [...] 2 0-7 Name: NAHOMY REEVES Unit #: [id number] : 1950 Sex: F Loc / Svc: ED DOS: 03/02/14 Signed Report #: [id number] DIAGNOSTIC IMAGING REPORT TYPE OF EXAM: CT [...] procedures. Encounters Encounter Location Date/Time Discharged Inpatient [facility] 03/02/14 5:22am Registered Clinic [facility] 02/27/14 10:09am Recent Diagnosis Medication side effect Dizziness Concussion Confusion
[2016-09-04 14:33] LABS: HCT - HEMATOCRIT 40.6 % (36-46); LYMPHOCYTES % (AUTO) 41.7 % (23-45); MEAN CORPUSCULAR HGB 29.4 UUG (26-34); MEAN CORPUSCULAR VOLUME 91.9 UM3 (80-100); MEAN PLATELET VOLUME 9.2 UM3 (9.4-12.4); MONOCYTES # (AUTO) 0.4 T/MM3 (0-0.8); MONOCYTES % (AUTO) 5.6 % (0-9.0); NEUTROPHILS #(AUTO)-ABSOLUTE 3.7 T/MM3 (1.8-7.7); NEUTROPHILS % (AUTO) 52.7 % (33-66); RED BLOOD COUNT 4.42 M/MM3 (4.00-5.20); WBC - WHITE BLOOD COUNT 7.1 T/MM3 (4.5-11.0)
[2016-09-04 14:43] LABS: ALBUMIN 3.9 G/DL (3.5-5.0); ALBUMIN/GLOBULIN RATIO 1.3 RATIO (1.1-2.2); ALKALINE PHOSPHATASE 55 U/L (38-126); ALT (SGPT) 44 U/L (9-52); ANION GAP 15 MEQ/L (5-15); AST (SGOT) 30 U/L (14-36); BUN/CREATININE RATIO 16 RATIO (6-26); CALCIUM 9.2 MG/DL (8.4-10.2); CHLORIDE 105 MEQ/L (98-107); CO2 - CARBON DIOXIDE 23 MEQ/L (22-30); CREATININE 1.6 MG/DL (0.7-1.2); GLOMERULAR FILTRATION RATE 32; GLUCOSE 105 MG/DL (65-110); POTASSIUM 4.2 MEQ/L (3.6-5); SODIUM 143 MEQ/L (134-144); TOTAL PROTEIN 6.8 G/DL (6.3-8.2)
[2016-09-04] MEDS ORDERED: ALLO100T PO (14:50)
[2016-09-04] MEDS ORDERED: PRAV20TA4 PO (14:52)
[2016-09-04] MEDS ORDERED: LOSA50TA52 PO (14:52)
[2016-09-04] MEDS ORDERED: ESCI10TA47 PO (14:52)
[2016-09-04] MEDS ORDERED: ALEN70TA48 PO (14:53)
[2016-09-04 14:54] LABS: PROBNP 72 PG/ML (0-175)
--- NOTE | 2016-09-04 14:56 | NUR ---
XRAY TO XRAY VIA CART
[2016-09-04] MEDS ORDERED: NORMAL SALINE 1,000 ML IV ONE (15:00)
--- NOTE | 2016-09-04 15:11 | NUR ---
XRAY RETURNS FROM XRAY
--- NOTE | 2016-09-04 15:22 | DI ---
LOCATION OF DICTATION: [place] EXAM: CHEST, PA LATERAL HISTORY: ITS.REASON: SOA, hypoxia COMPARISON: No prior studies available for comparison. FINDINGS: The heart size is mildly enlarged. The mediastinal configuration is unremarkable. There are no consolidating opacities or pleural effusions. There is no evidence for a pneumothorax. The osseous structures are within normal limits. IMPRESSION: Mild cardiomegaly without evidence for CHF or pneumonia. .
[2016-09-04] MEDS ORDERED: NORMAL SALINE 100 ML ONE (15:34)
[2016-09-04] MEDS ORDERED: IOHEXOL 350 MG/ML 75ml INJECTION ONE (15:34)
[2016-09-04] MEDS ORDERED: SALINE FLUSH 10ml SYRINGE ONE (15:35)
--- NOTE | 2016-09-04 15:54 | NUR ---
CT TO CT VIA CART
--- NOTE | 2016-09-04 16:25 | NUR ---
ELIMINATION AMBULATES TO BR
[2016-09-04 16:40] LABS: BLOOD, URINE NEGATIVE (NEGATIVE); COLOR,URINE YELLOW (YELLOW); LEUKOCYTE ESTERASE ,URINE 1+ (NEGATIVE); NITRITE,URINE NEGATIVE (NEGATIVE); UROBILINOGEN,URINE 0.2 EU/DL (NORMAL)
[2016-09-04 16:52] LABS: SQUAMOUS EPITHELIAL CELL,UR 0-5
[2016-09-04 16:53] LABS: HYALINE CASTS, URINE 0-1 /LPF
[2016-09-04 16:54] LABS: RBC,URINE NONE SEEN /HPF (0-3)
[2016-09-04 16:55] LABS: BACTERIA,URINE 1+ (NEGATIVE)
--- NOTE | 2016-09-04 17:04 | DI ---
EXAM: CTA PULMONARY EMBOLI LOCATION OF DICTATION: [place] HISTORY: ITS.REASON: hypoxia COMPARISON: No prior studies available for comparison. TECHNIQUE: Multiple contiguous axial images were obtained of the chest with contrast utilizing 85 mL of Omnipaque [address] angiogram protocol. Coronal, sagittal, and MIP reformatted images were utilized. Automated Exposure Control and Iterative Reconstruction dose reducing techniques were utilized. FINDINGS: Small hiatal hernia is demonstrated. The heart is mildly enlarged. There is no pericardial effusion. There is mild calcific atherosclerotic disease of the thoracic aorta and moderate calcific atherosclerotic disease of the coronary arteries. There are no central pulmonary artery filling defects to suggest pulmonary artery embolism. There is bilateral dependent atelectasis. There are no consolidating opacities or pleural effusions. There is no pneumothorax. There is no axillary, hilar, or mediastinal lymphadenopathy. Mild spondylosis of the thoracic spine. No suspicious or destructive osseous lesions. IMPRESSION: 1. No evidence for pulmonary embolism. 2. Mild cardiomegaly. Moderate calcific atherosclerotic disease of the coronary arteries. 3. Lungs are clear apart from mild dependent atelectasis. .
[2016-09-04 18:07] VITALS: BP 117/62; PULSE 84; RESP 18; TEMP 98.1; O2SAT 95
--- NOTE | 2016-09-04 18:09 | NUR ---
ambulation pt a mbulatated in the halls. pt denies dizziness. pt reports feeling better
--- NOTE | 2016-09-04 18:10 | NUR ---
depart pt is given dismissal instructions with verbal understanding. pt reports feeling better. blood pressure improved. pt is ambulatory to ed registration desk
== END 2016-09-04 18:10 | disposition home or self-care (01) ==
LOC: ED 14:02
DX: I95.1 Orthostatic hypotension (principal); R42 Dizziness and giddiness; R09.02 Hypoxemia; E86.9 Volume depletion, unspecified
CPT/HCPCS: 36415; 71020; 71275; 80053; 81001; 82948; 83880; 84484; 85025; 85379; 93005; 96361; 96374; 99284; J2405; J7030; J7050; Q9967